=== PATIENT | female | born 1945 | race Hispanic/Latino ===

== ENCOUNTER 2017-05-31 12:55 | Day surgery (SDC) | payer MEDICARE ==
--- NOTE | 2017-05-31 13:46 | Anesthesia Day of Surgery ---
Anesthesia Day of Surgery - Day of Surgery Patient Examined: Yes Patient H&P Reviewed: Yes Patient is NPO: Yes
--- NOTE | 2017-05-31 13:46 | Anesthesia Consultation ---
Anesthesia Consult and Med Hx Date of service: 05/31/17 - Airway Anesthetic Teeth Evaluation: Poor (only a few teeth left on bottom. some need to come out) ROM Head & Neck: Adequate Mental/Hyoid Distance: Adequate Mallampati Class: Class II Intubation Access Assessment: Probably Good - Pulmonary Exam CTA: Yes - Cardiac Exam Cardiac Exam: RRR - Pre-Operative Health Status ASA Pre-Surgery Classification: ASA3 Proposed Anesthetic Plan: General - Pulmonary Hx Smoking: Yes (STOPPED X 40 YRS-1/2 PACK PER WEEK) Hx Sleep Apnea: No (SILVIA PRE SCREEN HIGH RISK.) - Cardiovascular System Hx Hypertension: Yes (2006) Hx Pacemaker: No Hx Internal Defibrillator: No Hx Heart Murmur: Yes - Central Nervous System Hx Psychiatric Problems: No - Endocrine Hx Renal Disease: Yes (CKD) - Hematic Hx Anemia: Yes - Other Systems Hx Cancer: Yes
[2017-05-31] MEDS ORDERED: NACL 0.9% 1000 ML 1,000 ML IV SCH (14:00)
[2017-05-31] MEDS ORDERED: PEPCID IV NR (14:00)
[2017-05-31] MEDS ORDERED: VERSED IV NR (14:00)
[2017-05-31 14:09] LABS: Hematocrit 38.1 % (30.3-42.9); Hemoglobin 12.5 gm/dl (10.1-14.3)
[2017-05-31] MEDS ORDERED: ZOFRAN IV PRN (14:16)
[2017-05-31] MEDS ORDERED: DILAUDID IV PRN (14:16)
--- NOTE | 2017-05-31 14:16 | Post Anesthesia Evaluation ---
- Post Anesthesia Evaluation Patient Participated: Yes Airway Patent: Yes Stable Respiratory Function: Yes Nausea/Vomiting: No Temp > 96.8F: Yes Pain Manageable: Yes Adequeate Hydration: Yes Anesthesia Complications: No Block Receding Appropriately: Not Applicable Patient on Ventilator: No
[2017-05-31] MEDS ORDERED: DIPRIVAN 10 MG/ML IV ONE (16:13)
[2017-05-31] MEDS ORDERED: SUBLIMAZE ONE (16:13)
[2017-05-31] MEDS ORDERED: XYLOCAINE MPF 2% ONE (16:13)
--- NOTE | 2017-05-31 16:16 | Short Stay Summary ---
Short Stay Documentation Date of service: 05/31/17 - History H&P: obtained from office - Allergies and Medications Current Medications: Allergies No Known Allergies Allergy (Verified 02/11/15 08:24) Home Medications Medication Instructions Recorded Confirmed Last Taken Type Allopurinol [Zyloprim] 100 mg PO TID 02/11/15 05/31/17 05/29/17 History Metoprolol Xl [Metoprolol 25 mg PO DAILY 02/11/15 05/31/17 05/30/17 History SUCCINATE ER TAB] Pravastatin Sodium [Pravastatin] 20 mg PO DAILY 02/11/15 05/31/17 05/30/17 History Valsartan [Diovan] 320 mg PO QDAY 02/11/15 05/31/17 05/30/17 History Metformin HCl [Glucophage] 1,000 mg PO BID 04/01/15 05/28/17 03/31/15 History 1000mg Cholecalciferol Vit D3 [Vitamin D3] 1,000 unit PO QDAY 05/28/17 05/31/17 History Ferrous Sulfate [Feosol] 325 mg PO QDAY 05/28/17 05/31/17 05/30/17 History Glimepiride [Amaryl] 4 mg PO DAILY 05/28/17 05/31/17 05/30/17 History Meloxicam [Mobic] 15 mg PO PRN PRN 05/28/17 05/28/17 Unknown History Meloxicam, Submicronized [Vivlodex] 5 mg PO DAILY 05/28/17 05/28/17 Unknown History Oxybutynin [Ditropan] 5 mg PO BID 05/28/17 05/31/17 05/29/17 History Active Medications Cefazolin Sodium (Ancef/Sterile Water 2 Gm/20 Ml) 2 gm IV PREOP NR Famotidine (Pepcid) 20 mg IV PREOP NR Stop: 05/31/17 23:00 Last Admin: 05/31/17 14:14 Dose: 20 mg Hydromorphone HCl (Dilaudid) 0.5 mg IV Q10MIN PRN PRN Reason: Pain , Severe (7-10) Stop: 06/03/17 14:17 Sodium Chloride (Nacl 0.9% 1000 Ml) 1,000 mls @ 125 mls/hr IV DIRECT DASH Last Admin: 05/31/17 14:10 Dose: 125 mls/hr Midazolam HCl (Versed) 2 mg IV PREOP NR Stop: 05/31/17 23:59 Last Admin: 05/31/17 14:16 Dose: 2 mg - Brief post op/procedure progress note Date of procedure: 05/31/17 Pre-op diagnosis: left renal mass Post-op diagnosis: same Procedure: cysto, brpg, left urs, left renal pelvic wash, left renal pelvis brush biopsy Anesthesia: GETA Findings: no tumor, renal pelvis erythema more likely secondary to instrumentation than from cancer Surgeon: TITUS GARZA Estimated blood loss: minimal Pathology: list (left renal pelvis fluid, lt renal pelvis wash x2; left renal pelvis brush biopsy) Condition: stable - Hospital course Hospital course: orpacuhome - Disposition Condition at discharge: Good Disposition: DC-01 TO HOME OR SELFCARE Short Stay Discharge Plan Activity: advance as tolerated Diet: advance as tolerated Follow up with: MARTIN PIERRE MD [Staff Physician] - 7 Days Prescriptions: Cefuroxime Axetil [Ceftin] 250 mg PO Q12H #10 tablet HYDROcodone/APAP 5-325 [Carlton 5-325 mg TAB] 1 each PO Q4HR PRN #25 tablet PRN Reason: Pain
[2017-05-31] MEDS ORDERED: ePHEDrine SULFATE ONE ×2 (16:51→17:30)
[2017-05-31] MEDS ORDERED: ANCEF/STERILE WATER 2 GM/20 ML IV NR (17:00)
[2017-05-31] MEDS ORDERED: OMNIPAQUE 300 MG/50 ML (CATH LAB) IV ONE (17:05)
[2017-05-31] MEDS ORDERED: NACL 0.9% IR ONE (17:06)
[2017-05-31] MEDS ORDERED: NACL 0.9% 1000 ML 1,000 ML ONE (17:22)
[2017-05-31] MEDS ORDERED: NEO SYNEPHRINE ONE (17:44)
[2017-05-31] MEDS ORDERED: NACL 0.9% 100 ML ONE (17:47)
[2017-05-31 20:23] VITALS: BP 144/57
--- NOTE | 2017-06-01 10:18 | Fluoroscopy Report ---
FLUOROSCOPIC IMAGES AT BILATERAL RETROGRADE PYELOGRAM: 05/31/17 CLINICAL: Left renal mass. COMPARISON: None. FINDINGS: Printing Agent images demonstrate no suspicious calculus.. Subsequent images demonstrate opacification of normal bilateral nondilated renal collecting systems and ureters. For more details, please refer to the operative report.
--- NOTE | 2017-06-12 10:04 | Operative Report ---
PREOPERATIVE DIAGNOSIS: Left renal mass. POSTOPERATIVE DIAGNOSIS: Left renal mass. PROCEDURE: Cystoscopy, bilateral RPG, left ureteroscopy, left renal pelvic wash, left renal pelvis brush biopsy. ANESTHESIA: General. FINDINGS: No visible tumor in the renal pelvis, some erythema, more likely secondary to the instrumentation and from cancer. SURGEON: Abdirizak Junior MD ESTIMATED BLOOD LOSS: Minimal. PATHOLOGY: Left renal pelvis fluid and left renal pelvis wash x 2, left renal pelvis brush biopsy. CONDITION: Stable. CLINICAL INDICATIONS: The patient was counseled RCBA, antibiotics, SCDs by ca and his primary urologist. She had imaging studies that showed a possible central mass, which could be involving the renal pelvis or originating from renal pelvis or possible urothelial in origin, was counseled on options and desired to proceed. DESCRIPTION OF PROCEDURE: The patient was transferred to the OR suite, had antibiotics and SCDs, supine position, anesthesia, dorsal lithotomy, prepped and draped in standard fashion. A 22-Tamazight scope passed. Pancystoscopy 30 and 70-degree lens demonstrated no tumors within the bladder. Right UO cannulated 8 Tamazight cone-tipped catheter, contrast injected. Normal right distal ureter, proximal ureter, renal pelvis calyces. No filling defects or hydronephrosis. With repeat done on the left side, no left distal ureter or proximal ureteral abnormality. Renal pelvis, no significant hydro, no clear filling defect, but may be some rotation of infundibulum or calices, whether this was from the position of the kidney or mass is unclear. At this point, a Glidewire was passed, 0.35 and a second Glidewire 0.35 was passed. A flexible ureteroscope was passed. We passed this up the ureter. No left distal ureter, proximal ureter, stricture, stenosis, no filling defects, no tumors. No erythema. Upon entering the bladder, there was some blood. This was flushed out, the bladder was flushed out. Upon entering the left renal pelvis, fluid was aspirated and sent for pathology. Next, the left renal wash was done. All of this was done with normal saline and normal stone was used during the entire procedure. This was washed x 2 times and sent for pathology. Next, contrast was injected. We visualized the upper, lower, mid and all calyces. Inspection of all calices, renal pelvis demonstrated no papillary tumor, no high suspicion areas. In the renal pelvis, there was some erythema, but unclear if this was from instrumentation and wire, which was most likely was from this. [facility] biopsy passed. We did brushing of this area. The brush biopsy was then sent for pathology. At this point, the scope was slowly withdrawn. We inspected upper and lower pole calices, all the calyces, renal pelvis and then slowly withdrew the scope inspecting the ureter. There was very good visualization of the renal pelvis calyces in the proximal and distal ureter and entire ureter and no tumors. No obvious tumors were identified. Everything was adequately opened without significant trauma, so we felt safe to leave no stent. At this point, the scope was withdrawn, exam under anesthesia, no palpable urethral masses on bimanual exam. No masses. The patient was awakened and transferred to the PACU in good and stable condition. JOB# [id number] ATS/NTS
== END 2017-05-31 20:45 | disposition home or self-care (01) ==
LOC: OR 12:55
PROVIDERS: ATTEND Urology
DX: C65.2 Malignant neoplasm of left renal pelvis (principal); E11.22 Type 2 diabetes mellitus with diabetic chronic kidney disease; I12.9 Hypertensive chronic kidney disease with stage 1 through stage 4 chronic kidney disease, or unspecified chronic kidney disease; N18.9 Chronic kidney disease, unspecified; D64.9 Anemia, unspecified; E78.00 Pure hypercholesterolemia, unspecified; Z90.710 Acquired absence of both cervix and uterus; Z85.3 Personal history of malignant neoplasm of breast; Z85.828 Personal history of other malignant neoplasm of skin; Z98.890 Other specified postprocedural states; Z79.899 Other long term (current) drug therapy; Z79.84 Long term (current) use of oral hypoglycemic drugs; Z87.891 Personal history of nicotine dependence
CPT/HCPCS: 36415; 52354; 74420; 82962; 84132; 85014; 85018; 88112; A4217; C1726; C1758; C1769; J0690; J2250; J2370; J2704; J3010; J7030; Q9967

== ENCOUNTER 2017-11-07 11:23 | Outpatient (CLI) | payer MEDICARE ==
--- NOTE | 2017-11-08 15:01 | PET Report ---
PET/CT:11/07/17 11:23:00 CLINICAL: Breast cancer restaging. Status post remote right partial mastectomy. RADIOPHARMACEUTICAL: 1325mCi F18-FDG. COMPARISON: None. TECHNIQUE- Following intravenous injection of F-18 FDG and an approximately 60 minute uptake period, CT and PET images from the mid skull to the upper thighs were acquired with the patient in the fasted state. No contrast was administered. The CT protocol used for this PET CT study is designed for attenuation correction and anatomic localization of PET abnormalities. This ton container shipper CT is not desired to produce and cannot replace, [id number]-art diagnostic CT scans with specific imaging protocols for different body parts and indications. Plasma glucose at the time of this test: 144g/dl. The standardized uptake values (SUV) are normalized to patient body weight and indicate the highest activity concentration (SUV max) in a given disease site. FINDINGS: Brain--Physiologic FDG uptake in the visualized regions of the brain. Neck--Physiologic FDG uptake . Chest--Physiologic FDG uptake in mediastinal blood pool and myocardium. Lungs--No abnormal uptake. No pulmonary nodule or mass. Pleura/pericardium--No abnormal uptake. Thoracic nodes--No abnormal uptake. Hepatobiliary--No abnormal uptake. Liver background SUV mean, as a reference for comparing FDG studies, is 4.8 . No liver mass. At least 2 gallstones. Spleen--No abnormal uptake. Pancreas--No abnormal uptake. Adrenal Glands--No abnormal uptake. Kidneys/Ureters/Bladder--No abnormal uptake. Abdominopelvic Nodes--No abnormal uptake. Bowel/Peritoneum/Mesentery--No abnormal uptake. Pelvic organs--No abnormal uptake. Bones/Soft Tissues--No abnormal uptake. No suspicious bone lesion. Other findings: Benign diffuse FDG uptake in the left lateral abdominal wall at a well demarcated level which suggests that this may be a surgical scar. Status post hysterectomy. IMPRESSION- 1. No evidence of disease recurrence or metastasis. 2. Benign FDG uptake in the left lateral abdominal wall. 3. Cholelithiasis.
== END 2017-11-07 11:24 | disposition home or self-care (01) ==
LOC: PET 11:23
PROVIDERS: ATTEND Internal Medicine Hematology & Oncology
DX: C64.9 Malignant neoplasm of unspecified kidney, except renal pelvis (principal); C19 Malignant neoplasm of rectosigmoid junction; K80.20 Calculus of gallbladder without cholecystitis without obstruction; I10 Essential (primary) hypertension; E11.9 Type 2 diabetes mellitus without complications; D64.9 Anemia, unspecified; Z85.3 Personal history of malignant neoplasm of breast; Z90.11 Acquired absence of right breast and nipple; Z90.710 Acquired absence of both cervix and uterus; Z79.899 Other long term (current) drug therapy; Z87.891 Personal history of nicotine dependence
CPT/HCPCS: 78815; 82962; A9552

== ENCOUNTER 2019-02-27 11:08 | Outpatient (CLI) | payer MEDICARE ==
--- NOTE | 2019-02-27 15:56 | Cat Scan Report ---
PROCEDURE: CT CHEST WO CON HISTORY: RENAL CELL CA FINDINGS: Unenhanced CT of the chest was performed and compared to the prior examination of July 14, 2018. Data was reformatted into the sagittal and coronal planes. These images demonstrate stable cardiomegaly. There is coronary artery calcification. There is no suspect focal pulmonary mass or infiltrate. There are calcified left hilar nodes. No pathologically enlarged mediastinal lymph nodes is seen. The ascending thoracic aorta is mildly dilated at 3.8 cm, unchanged. The sternum is intact. No fracture or destructive lesion is seen in the thoracic spine. There is no pleural or pericardial effusion. In the upper abdomen there has been a left nephrectomy. There is a gallstone. IMPRESSION: Cardiomegaly No suspect focal pulmonary mass or infiltrate All CT scans at this location are performed using dose modulation techniques as appropriate to a perf ormed exam including the following: automated exposure control, adjustment of the mA and/or kV accord ing to patient size (this includes techniques or standardized protocols for targeted exams where dose is matched to indication/reason for exam, i.e.extremities or head; use of imaging [id number] This document is electronically signed by Mehul Lagunas MD., February 27 2019 03:54:32 PM ET
--- NOTE | 2019-02-27 16:16 | Cat Scan Report ---
PROCEDURE: CT ABDOMEN PELVIS WO CON TECHNIQUE: Computerized axial tomography of the abdomen and pelvis was performed without intravenous contrast. This study is performed without intravascular contrast material and its sensitivity for ab dominal and pelvic pathology, including neoplasms, inflammation, abscess, free fluid, thrombosis, art erial dissection and infarction, is reduced compared with a contrast enhanced study. HISTORY: RENAL CELL CA COMPARISONS: None . FINDINGS: Lower Lung todd: Lung bases are clear. Calcifications in the coronary arteries indicating atherosc lerotic disease. Upper Abdomen: Partially calcified gallstone appears to be visualized in the neck of the gallbladder . The gallbladder is otherwise unremarkable. The unenhanced images of the liver show no focal abnorma lities. The right kidney, right ureter and urinary bladder are unremarkable. Left kidney is surgicall y absent. Surgical clips are seen in the left renal fossa. No masses are identified. The pancreas is unremarkable. There is a calcified granuloma visualized in the spleen which is otherwise unremarkable .. No adrenal abnormalities are visualized. Retroperitoneum: Atherosclerotic changes are seen in the abdominal aorta. No aneurysm is visualized. Nonspecific subcentimeter lymph nodes are seen in the retroperitoneum. No pathologically enlarged ly mph nodes are identified. Bowel: No focal bowel abnormalities are seen. No evidence of bowel obstruction ascites or free intra peritoneal gas. Normal-appearing appendix is seen in the right lower quadrant. Small umbilical hernia containing adipose tissue visualized. No herniated loops of bowel are seen. Reproductive organs: Uterus is surgically absent. No abnormal adnexal masses are identified. Other: No acute bony abnormalities identified. Schmorl's nodes involving the superior endplate of L4. IMPRESSION: Prior left nephrectomy. No acute abnormalities are identified. Atherosclerosis coronary arteries. Cholelithiasis. Prior hysterectomy. This document is electronically signed by Case Mandujano MD., February 27 2019 04:14:36 PM ET
== END 2019-02-27 11:09 | disposition home or self-care (01) ==
LOC: CT 11:08
PROVIDERS: ATTEND Internal Medicine Hematology & Oncology
DX: C19 Malignant neoplasm of rectosigmoid junction (principal); I25.10 Atherosclerotic heart disease of native coronary artery without angina pectoris; K80.20 Calculus of gallbladder without cholecystitis without obstruction; I11.9 Hypertensive heart disease without heart failure; C64.9 Malignant neoplasm of unspecified kidney, except renal pelvis; E11.9 Type 2 diabetes mellitus without complications; E78.00 Pure hypercholesterolemia, unspecified; C21.0 Malignant neoplasm of anus, unspecified; D69.6 Thrombocytopenia, unspecified; Z85.3 Personal history of malignant neoplasm of breast; Z90.710 Acquired absence of both cervix and uterus
CPT/HCPCS: 71250; 74176